=== PATIENT | female | born 1950 | race Caucasian/White ===

== ENCOUNTER → 2017-07-31 | Outpatient (CLI) | payer OTHER ==
[~2017-07-31] VITALS: Ht 162.6 cm; Wt 70.9 kg
[~2017-07-31] MED LIST: ALBUTEROL INHAL17 GM IH; ALENDRONATE SOD70 MG PO; ALLEGRA ALLERGY60 MG PO; ANASTROZOLE1 MG PO; AVELOX400 MG PO; CALCIUM 500 +1 EAC5 PO; IBUPROFEN200 MG PO; NEURONTIN 300300 M1 PO; NP THYROID90 MG PO; PERCOCET 5-3251 EACH PO; PREDNISONE50 MG PO; ZOFRAN4 MG PO
--- NOTE | ~2017-07-31 | HPC ---
[facility] [address] [place] [address] PAIN MANAGEMENT CONSULTATION Name: GUNNERKIRIT Juan Luis Room #: [facility]#: [id number] Admission: 07/31/17 Attend Phys: Adarsh Wade DO Discharge: Date of : 46 Report #: [id number] THIS REPORT FOR: //name// CC: Adarsh Lackey DATE OF SERVICE: 07/31/2017 REFERRING PHYSICIAN: SHAR Engle CHIEF COMPLAINT: Low back pain, right lower extremity pain with paresthesias. HISTORY OF PRESENT ILLNESS: As you know, the patient is a 67-year-old female with longstanding history of low back pain, lower extremity pain with paresthesias. She returns today in followup visit indicating pain recurred about 3 months ago. She is now placing pain score 3-4/10. States her pain is dull, aching and twisting in sensation; exacerbated with standing, walking and progresses throughout the day; lying down, elevating legs, medications and epidural injections have been effective for pain control. The patient reports 80% improvement in overall pain with previous epidural injection that was provided 1 year and 1 month ago. She returns today in followup visit without new inciting injury or trauma, no changes in medical history, requesting next in a series of epidural injections to address recurrent lumbar radicular symptoms. ALLERGIES: MORPHINE, CODEINE, HYDROCODONE, SHELLFISH. CURRENT MEDICATIONS: Fexofenadine, FERRYBOAT HELPER Thyroid, alendronate, calcium carbonate, ibuprofen. SOCIAL HISTORY: The patient denies IV or illicit drug use, denies any chronic alcohol use. She is an occasional smoker. 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 She retired years ago, unaccompanied today. IMAGING: No new imaging available. PHYSICAL EXAMINATION: VITAL SIGNS: Blood pressure 116/77, pulse 73, respiratory rate 16, unlabored. The patient is 100% on room air, height 5 feet 4 inches tall, weight 156.2 pounds, BMI calculated 26.8. GENERAL: Well-developed, well-nourished, well-hydrated 67-year-old female appearing stated age, placing current pain score 3-4/10. HEENT: Normocephalic, atraumatic. Pupils are equal, round and reactive to light. Extraocular muscles are intact. Sclerae are nonicteric without injection. NEUROLOGIC: Cranial nerves 2-12 grossly intact. Speech remains fluent. LUNGS: Clear. No wheeze, rhonchi or rales. [facility] [address] [place] [address] PAIN MANAGEMENT CONSULTATION Name: KIRIT MARTINO Room #: [facility]#: [id number] Admission: 07/31/17 Attend Phys: Adarsh Wade DO Discharge: Date of : 46 Report #: [id number] CARDIOVASCULAR: Regular. No appreciable gallop or rub. ABDOMEN: Soft, nontender, nondistended. EXTREMITIES: Show no clubbing, no cyanosis, no edema. MUSCULOSKELETAL: Seated straight leg raising negative. Supine straight leg raising positive on the right. Fabere's test is negative. Gait is mildly antalgic favoring right lower extremity over left. Muscle bulk and tone equal and symmetrical. Deep tendon reflexes are symmetrical at patella and Achilles. Ankle clonus is negative. Babinski is negative. ASSESSMENT: 1. Symptomatic lumbar radiculopathy. 2. Displacement of lumbar intervertebral disk with radiculopathy. 3. Lumbosacral spondylosis with radiculopathy. 4. Lumbar degeneration. 5. Chronic intractable pain. PLAN: 1. The patient returns today in followup visit with recurrent lumbar radicular symptoms began about 3 months ago and progressively worsened. The patient has returned in followup visit to undergo next in a series of epidural injections. The patient and I discussed at length the risks and benefits of the repeating lumbar epidural injection. These risks include but are not necessarily limited to bleeding, bruising, infection, worsening pain, no relief of pain, also risk of temporary or permanent muscle weakness, temporary or permanent nerve damage, possible paralysis and . The patient states she understood and wished to proceed. 2. No medication changes were made at today's visit. The patient to continue current medical therapy as previously prescribed. 3. The patient to return to our clinic on an as needed basis for the next in a series of epidural injections and discuss other options for treatment. PROCEDURE NOTE DESCRIPTION OF PROCEDURE: L5-S1 right paramedian epidural steroid injection under fluoroscopic guidance. After obtaining written consent, the patient was taken back to fluoroscopy suite, placed in prone position with pillow under abdomen to decrease lumbar lordosis. Skin overlying lumbosacral area prepped and draped in aseptic fashion. The L5-S1 vertebral interspace was identified by AP fluoroscopy. Skin and subcutaneous tissue overlying target site of injection was anesthetized with 3 mL of 1% lidocaine. A 20-gauge 3-1/2 inch Tuohy needle was advanced under fluoroscopic guidance towards the epidural space using a right paramedian approach. Epidural space was identified using loss of resistance to air. Due to a contrast allergy, [address] [address] PAIN MANAGEMENT CONSULTATION Name: KIRIT MARTINO Room #: [facility]#: [id number] Admission: 07/31/17 Attend Phys: Adarsh Wade DO Discharge: Date of : 46 Report #: [id number] contrast agent was provided. Needle position was confirmed using both AP and lateral fluoroscopy. After negative aspiration for heme or cerebrospinal fluid, 5 mL of a solution containing 2 mL 40 mg per mL, 80 mg total triamcinolone, 3 mL lidocaine 1% injected slowly. Needle retracted group home, needle tract flushed with 3 mL of 1% lidocaine. Needle removed. Sterile bandage was placed over injection site. No new motor deficits present in the lower extremities following procedure. The patient tolerated procedure well, carefully escorted to the recovery in stable condition. No apparent complications. After meeting discharge criteria, the patient discharged home. By: 1330 1925 Adarsh Wade DO /nt
[2017-07-31 08:57] VITALS: BP 116/77
== END | disposition home or self-care (01) ==
LOC: PAIN 07:13
DX: M51.16 Intervertebral disc disorders with radiculopathy, lumbar region (principal); M47.817 Spondylosis without myelopathy or radiculopathy, lumbosacral region; G89.29 Other chronic pain; Z88.8 Allergy status to other drugs, medicaments and biological substances; Z79.899 Other long term (current) drug therapy; F17.200 Nicotine dependence, unspecified, uncomplicated

== ENCOUNTER → 2018-01-14 | Outpatient (CLI) | payer OTHER | LOC: RAD 01-11 13:27 | DX: C50.411 Malignant neoplasm of upper-outer quadrant of right female breast (principal); M81.8 Other osteoporosis without current pathological fracture; E28.39 Other primary ovarian failure; E55.9 Vitamin D deficiency, unspecified; Z78.0 Asymptomatic menopausal state ==

== ENCOUNTER → 2019-01-14 | Outpatient (CLI) | payer OTHER | LOC: RAD 01:07 | DX: Z12.31 Encounter for screening mammogram for malignant neoplasm of breast (principal) ==

== ENCOUNTER → 2020-01-21 | Outpatient (CLI) | payer OTHER | LOC: BC 10:17 → RAD 13:49 → BC 20:08 | DX: Z12.31 Encounter for screening mammogram for malignant neoplasm of breast (principal); M81.0 Age-related osteoporosis without current pathological fracture; Z78.0 Asymptomatic menopausal state ==

== ENCOUNTER → 2020-03-19 | Outpatient (CLI) | payer OTHER | LOC: RAD 09:52 | DX: R91.8 Other nonspecific abnormal finding of lung field (principal); J94.8 Other specified pleural conditions; M47.816 Spondylosis without myelopathy or radiculopathy, lumbar region; M41.85 Other forms of scoliosis, thoracolumbar region ==

== ENCOUNTER → 2020-04-14 | Outpatient (CLI) | payer OTHER | LOC: CAT 04-13 13:22 | DX: J98.4 Other disorders of lung (principal); I25.10 Atherosclerotic heart disease of native coronary artery without angina pectoris; I70.0 Atherosclerosis of aorta; Z85.3 Personal history of malignant neoplasm of breast ==

== ENCOUNTER → 2020-05-20 | Outpatient (CLI) | payer OTHER ==
[~2020-05-20] VITALS: Ht 162.6 cm; Wt 49.4 kg
[2020-05-20] VITALS (9 sets, daily range): BP systolic 90–112; BP diastolic 55–76
[2020-05-20 10:43] LABS: HEMATOCRIT 44.6 % (37.0-47.0); HEMOGLOBIN 14.3 gm/dL (12.0-15.0); MCH 27.9 pg (26.0-34.0); MCV 87.1 fL (80.0-100.0); RBC 5.13 mil/uL (4.20-5.00); WBC 5.5 thou/uL (4.0-11.0)
[2020-05-20 10:53] LABS: ALBUMIN 2.8 g/dL (3.4-5.0); DIRECT BILIRUBIN < 0.1 mg/dL (<0.1-0.2); SGOT 43 U/L (15-37); SGPT 28 U/L (30-65); TOTAL BILIRUBIN 0.3 mg/dL (0.2-1.0); TOTAL PROTEIN 7.6 g/dL (6.4-8.2)
[2020-05-20 10:56] LABS: APTT 27.2 Seconds (24.5-32.8); INR 1.1
--- NOTE | 2020-05-27 15:08 | PATH ---
[facility] [address] [address] PATHOLOGY RPT PROCEDURE Name: KIRIT ARMENTA Room #: [facility] M.R.#: [id number] Admission: 05/20/20 Date of : 46 Discharge: Report #: [id number] Path Case #: [id number] [facility] Accession Number: [id number] . 01 Material submitted: . liver - FOCAL LIVER BIOPSY, RIGHT LOBE. Modifiers: right lobe . 01 Clinical history: . A 69-year-old female with a history of breast cancer 2013, now with multiple lung and liver nodules. . 02 Diagnosis: Liver, needle biopsy mass: . - INVOLVEMENT BY MODERATELY-DIFFERENTIATED ADENOCARCINOMA, CONSISTENT WITH BREAST PRIMARY. . The findings are discussed with Leyla, in Dr. Vela's office, on 05/27/2020, at 14:05. . (VICKEY:yee; 05/26/2020) [facility] 05/27/2020 1414 Local . 02 Comment: The case is seen in co-review with Dr. Ashley Irving who concurs with the diagnosis. . (MLK:yee; 05/26/2020) . 02 Electronically signed: . Nasir Mims MD, Pathologist NPI- [id number] . 01 Gross description: . The specimen is received in formalin, labeled "Kirit Armenta, focal liver biopsy". Received are seven needle cores of pale bautista to orange-bautista soft tissue ranging in length from 0.8 to 1.9 cm in length by 0.1 cm in diameter. The specimen is submitted entirely in cassette A1 through A3. (CAA; 05/20/2020) QAC/QAC 05/20/2020 1631 Local . 02 Microscopic: . Immunohistochemical stain results (block A2): TTF-1 - Tumor cells negative CD34 - Tumor cells negative CK19 - Tumor cells positive CK7 - Tumor cells negative [address] [address] PATHOLOGY RPT PROCEDURE Name: GUNNERKIRIT Room #: REG [facility]#: [id number] Admission: 05/20/20 Date of : 46 Discharge: Report #: [id number] Path Case #: [id number] CK20 - Tumor cells negative HepPar1 - Tumor cells negative CD10 - Tumor cells negative CD117 - Tumor cells negative CEA polyclonal - Tumor cells negative Synaptophysin - Tumor cells negative CK5/6 - Tumor cells positive ER - Tumor cells positive (nuclear pattern) Progesterone - Tumor cells negative Chromogranin - Tumor cells negative Napsin A - Tumor cells negative NSE - Tumor cells negative GCDFP - Tumor cells negative (MLK:mml; 05/26/2020) . . . Professional services performed by [facility] at [facility], [address] , [place] [address]. [facility] at [address] [place] [address], [address], [place] [address]. . . Professional services performed by [facility] at [facility], [address] [place] [address]. Technical services performed by [address], [address], [place] [address]. . 02 Pathologist provided ICD-10: C78.7 . 02 CPT . 157107, D73058, [id number] Specimen Comment: A courtesy copy of this report has been sent to [phone], [phone] Specimen Comment: [phone], Specimen Comment: Report sent to ,DR VELA / DR IQBAL Performed at: [address], [place], [place] [id number] MD Juan Alberto Melvin MD Phone: [phone] Performed at: 02 [facility] [address], [place], [place] [id number] MD Loan Hahn MD Phone: [phone]
== END | disposition home or self-care (01) ==
LOC: ULTRA 09:04
PROVIDERS: ATTEND Internal Medicine Pulmonary Disease
DX: C78.7 Secondary malignant neoplasm of liver and intrahepatic bile duct (principal); K74.60 Unspecified cirrhosis of liver